=== PATIENT | male | born 1990 | race Caucasian/White ===

== ENCOUNTER 2016-10-31 22:54 | Emergency (ER) | payer BC, OTHER ==
[~2016-10-31] VITALS: Ht 160 cm; Wt 58.3 kg
[~2016-10-31 22:54] MED LIST: PSEU120T10 PO
[2016-10-31 22:56] VITALS: Ht 160 cm; Wt 58.3 kg
[2016-10-31] MEDS ORDERED: IBUPROFEN 600 MG TAB PO STA (23:23)
[2016-10-31] MEDS ORDERED: ACETAMINOPHEN 500 MG TAB PO STA (23:23)
[2016-11-01 00:55] VITALS: TEMP 37
[2016-11-01 01:22] LABS: INFLUENZA A PCR POS for Influ A (NEG); INFLUENZA B PCR Neg for Influ B (NEG)
--- NOTE | 2016-11-01 01:27 | EMERGENCY ROOM VISIT NOTE ---
History First contact with patient: 23:03 Chief Complaint: COUGH Stated Complaint: CHEST PAINS, SEVERE COUGH Nursing Triage Summary: Cough since Saturday. Chest pain while coughing. History of Present Illness The patient is a 26 year old male who presents to the Emergency Room with complaints of cough, fever, chills, myalgias, arthralgias for the past day. He did not receive the flu vaccine. His child was positive for influenza. He is tolerating fluids. Patient denies neck stiffness, sore throat, chest pain, dyspnea, abdominal pain, sinus pain or congestion. Review of Systems See HPI for pertinent positives & negatives. A total of 10 systems reviewed and were otherwise negative. Past Medical/Surgical History Medical Problems: (1) Esophageal Reflux Family History No significant family history Social History Smoking Status: Former Smoker Alcohol Use: occasionally Drug Use: none Marital Status: in relationship Housing Status: lives with significant other Occupation Status: employed Current/Historical Medications No Active Prescriptions or Reported Meds Allergies Coded Allergies: No Known Allergies (Unverified , 10/31/16) Physical Exam Vital Signs Date Time Temp Pulse Resp B/P Pulse Ox O2 Delivery O2 Flow Rate FiO2 11/01/16 00:55 37.0 68 16 127/75 98 Room Air 10/31/16 23:46 Room Air 10/31/16 22:56 37.7 91 20 141/83 97 Room Air Physical Exam VITALS: Vitals are noted on the nurse's note and reviewed by myself. Vital signs febrile. GENERAL: Pleasant male mildly ill appearing, in no acute distress, nondiaphoretic, well-developed well-nourished. SKIN: The skin was without rashes, erythema, edema, or bruising. There is no tenting of the skin. Capillary reflex less than 2 seconds. HEAD: Normocephalic atraumatic. EARS: External auditory canals clear, tympanic membranes pearly [place] without erythema or effusion bilaterally. EYES: Pupils equal round and reactive to light and accommodation. Conjunctivae without injection, sclerae without icterus. Extraocular movements intact. NOSE: Patent, turbinates without inflammation or discharge. No sinus tenderness. MOUTH: Mucous membranes moist. Tonsils are not enlarged. Pharynx without erythema or exudate. Uvula midline. Airway patent. Tongue does not deviate. NECK: Supple without nuchal rigidity. No lymphadenopathy. No thyromegaly. Cervical spine is nontender. No JVD. No meningeal signs HEART: Regular rate and rhythm without murmurs gallops or rubs. LUNGS: Clear to auscultation bilaterally without wheezes, rales or rhonchi. No dullness to percussion. No retractions or accessory muscle use. ABDOMEN: Positive bowel sounds x 4. Normal tympanic percussion. Soft, nontender, without masses or organomegaly. Andrews sign negative. No guarding or rebound tenderness. MUSCULOSKELETAL: No muscle atrophy, erythema, or edema noted. NEURO: Patient was alert and oriented to person place and time. Normal sensation to light and sharp touch. No focal neurological deficits. Medical Decision & Procedures Laboratory Results Test 10/31/16 23:49 Influenza Type A (RT-PCR) POS for Influ A (NEG) Influenza Type B (RT-PCR) Neg for Influ B (NEG) Medications Administered Medications (Trade) Dose Ordered Sig/Ila Route Start Time Stop Time Status Last Admin Dose Admin Ibuprofen (Motrin Tab) 600 mg NOW STAT PO 10/31/16 23:23 10/31/16 23:26 DC 10/31/16 23:45 600 MG Acetaminophen (Tylenol Tab) 1,000 mg NOW STAT PO 10/31/16 23:23 10/31/16 23:26 DC 10/31/16 23:45 1,000 MG ED Course Prior records/ancillary studies reviewed. Triage Nursing notes reviewed. Additional history obtained from girlfriend The patient's history was concerning for fever. Differential diagnosis: Etiologies such as viral syndrome, otitis, pharyngitis, pneumonia, influenza, meningitis, urinary tract infection, sepsis, bacteremia, as well as others were entertained. Physical examination: Patient was alert and oriented and tolerated fluids ER treatment provided: Tylenol, Motrin, by mouth fluids On reassessment the patient felt better. Diagnostics interpreted by me: The labs revealed positive influenza A Imaging studies: Chest x-ray with no acute consolidation, pneumothorax or free air per my interpretation This appears to be consistent with influenza. Patient was within the window to treat. He was started on Tamiflu. He was advised that he is highly contagious. He was advised to stay at home until he is 24 hours as he is highly contagious. He was advised to Take cold medicines as needed. He was advised to return to the ER immediately for high fevers, lethargy, neck stiffness, worsening signs or symptoms or as needed. By the evaluation outlined above emergent etiologies such as otitis, pharyngitis, pneumonia, meningitis, urinary tract infection, sepsis, bacteremia, as well as others were deemed relatively unlikely. The pt informed about the findings as listed above. All questions were answered and pleased with the treatment. Return instructions were outlined and the patient was discharged in stable condition. Outpatient prescription management: Tamiflu Referral: The patient was referred back to their primary care physician for follow-up in 2 to 3 days for a recheck of the current condition. Medical Decision As above Impression Primary Impression: Influenza A Departure Information Dispostion Home / Self-Care Condition GOOD Prescriptions No Active Prescriptions or Reported Meds Referrals No Doctor, Assigned (PCP) Patient Instructions A Signature Page, [facility] Additional Instructions Tamiflu 75 m tablet twice a day for 5 days.Any medication can cause an allergic reaction, stop the pills immediately and return to the ER for rash, hives, breathing difficulties, or swelling. Acetaminophen(Tylenol) may be used for fever or pain. Use 1000mg every six hours as needed. Avoid using more than 3000mg in a 24 hour period. (AND/OR) Ibuprofen(Motrin, Advil) may be used for fever or pain. Use 600mg every six hours as needed. Take with food. Avoid using more than 2400mg in a 24 hour period. Do not use 2400mg per day for more than three consecutive days without physician direction. Prolonged inappropriate use can lead to stomach upset or ulcers. Afrin nasal spray: 2-3 sprays to each nostril twice daily as needed for congestion. Do not use for more than 3-4 days because it can lead to worsening rebound congestion. Pseudoephedrine(Sudaphed): 30-60mg every 6 hours as needed for nasal congestion. Do not take this with other stimulant products or supplements. Albuterol Inhaler: Take 2 puffs four times daily for seven days, then as needed. Rest and drink plenty of fluids. Controlling your fever with Tylenol and Ibuprofen as above will make you feel better. Wash your hands after nose blowing, sneezing, or coughing. Most germs are spread through contact, therefore improper hygiene may result in your close contacts and loved ones becoming ill just like you. Continue current medications. Return to the ER for severe headache, neck stiffness, chest pain, difficulty breathing, fevers, vomiting, worsening of your condition, or as needed. Follow up with your primary physician this week for a recheck of your current condition.
[2016-11-01] MEDS ORDERED: ALBUTEROL HFA 8 GM INHALER INH STA (01:28)
[2016-11-01] MEDS ORDERED: OSELTAMIVIR PHOSPHATE 75 MG CAP PO STA (01:28)
[2016-11-01] MEDS ORDERED: OSEL75CA12 PO (01:29)
[2016-11-01 01:42] VITALS: BP 132/68; PULSE 72; O2SAT 98
--- NOTE | 2016-11-01 06:37 | DIAGNOSTIC IMAGING REPORT ---
CHEST 2 VIEWS ROUTINE CLINICAL HISTORY: Cough. Fever. COMPARISON STUDY: Chest radiograph March 11, 2008. FINDINGS: Lung volumes are normal. Lungs are clear. There is no pneumothorax or pleural effusion. Cardiac size is normal. Mediastinal contours are unremarkable. There is no evidence of pulmonary edema. IMPRESSION: No acute cardiopulmonary findings. Electronically signed by: Sg Cardenas M.D. 11/01/2016 6:35 AM Dictated Date/Time: 11/01/2016 6:34 AM
== END 2016-11-01 01:43 | disposition home or self-care (01) ==
LOC: C.EDB 22:56
DX: J11.1 Influenza due to unidentified influenza virus with other respiratory manifestations (principal); K21.9 Gastro-esophageal reflux disease without esophagitis; Z87.891 Personal history of nicotine dependence

== ENCOUNTER 2017-01-31 13:27 | Emergency (ER) | payer OTHER ==
[~2017-01-31] VITALS: Ht 160 cm; Wt 57.7 kg
[2017-01-31 13:35] VITALS: BP 131/82; TEMP 36.7; Ht 160 cm; Wt 57.7 kg
--- NOTE | 2017-01-31 14:06 | EMERGENCY ROOM VISIT NOTE ---
ED Visit Note First contact with patient: 13:39 CHIEF COMPLAINT: Body Fluid exposure HPI: This 26-year-old male presents to the Emergency Department ambulatory for evaluation of a body fluid exposure. 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 There was no obvious blood on it. The source patient is not known. It is unknown how long the needle was in the garbage. The wound has already been cleansed. Bleeding is controlled. They deny numbness, tingling, or loss of motion. Source patient is not known. History of the source patient is not known at this time. They have had the hepatitis B. vaccination, and titers are unknown. They believe their tetanus is up-to-date. ALLERGIES: No known drug allergies MEDICATIONS: None PMH: None SOCIAL HISTORY: The patient is employed Physical Exam: VITALS: Nursing notes reviewed and vitals are stable. GENERAL: This is a 26-year-old male, in no acute distress, well developed, well nourished. SKIN: Warm and dry with good turgor. There are no obvious puncture wounds or abrasions to the right thumb. No edema. Capillary refill is 2+. MUSCULOSKELETAL: Patient has full active range of motion of the hand and fingers. Normal strength. NEURO: Gross sensation is intact across the fingers. ED COURSE: I examined the patient. Option of HIV, hepatitis C, and hepatitis B testing was discussed with the patient. The risks, benefits, purpose, and limitations of the tests were explained to the patient and all of their questions were answered. They elected to proceed. I did perform pretest counseling and the appropriate consent forms were signed. Patient was given information on prevention of exposure and transmission as well as hospital confidentiality. Blood exposure handout was provided. Patient elected to decline HIV prophylaxis at this time. They will follow-up with employee health. Wound care instructions were provided. Impression: Body fluid exposure Plan: Follow up with [facility] for further evaluation, treatment, and test results. You will need additional testing per [facility] but it may possibly be at 6 weeks, 3 months and 6 months. Contact them to determine when you should follow-up for the first visit. Problem List Medical Problems: (1) Esophageal Reflux Status: Chronic Allergies Coded Allergies: No Known Allergies (Unverified , 10/31/16) Vital Signs Date Time Temp Pulse Resp B/P Pulse Ox O2 Delivery O2 Flow Rate FiO2 01/31/17 14:39 65 16 100 01/31/17 13:35 36.7 57 18 131/82 99 Room Air Laboratory Results Test 01/31/17 14:20 Hepatitis B Surface Antibody POS Departure Information Impression Primary Impression: Employee exposure to body fluids Dispostion Home / Self-Care Condition GOOD Referrals Marichuy Meek A. 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 You will need additional testing per [facility] but it may possibly be at 6 weeks, 3 months and 6 months. Contact them to determine when you should follow- up for the first visit.
[2017-01-31 14:39] VITALS: PULSE 65; O2SAT 100
[2017-01-31 15:12] LABS: HEPATITIS B AB POS
== END 2017-01-31 14:39 | disposition home or self-care (01) ==
LOC: C.EDB 13:28 → C.EDD 14:39
DX: Z77.21 Contact with and (suspected) exposure to potentially hazardous body fluids (principal); Y99.0 Civilian activity done for income or pay; W46.0XXA Contact with hypodermic needle, initial encounter; Y92.89 Other specified places as the place of occurrence of the external cause; Y93.89 Activity, other specified